=== PATIENT | male | born 1960 ===

== ENCOUNTER 2016-11-30 09:45 | Emergency (ER) | payer MEDICAID ==
[2016-11-30 09:49] VITALS: BP 134/90; PULSE 94; RESP 20; TEMP 98.1; O2SAT 98
--- NOTE | 2016-11-30 10:15 | C.PDOC ---
History Of Present Illness 56 y/o M p/w L knee pain x few days, worse today. Pain is sharp, worse with movement, associated with swelling. Denies fever, erythema, trauma. Has had this pain multiple times before, has had XR/MRI, went to rehab once. Comes to ER today because last time he came for same pain, got Toradol injection and it took the pain away completely. Time Seen by Provider: 11/30/16 10:00 Chief Complaint (Nursing): Lower Extremity Problem/Injury Past Medical History Vital Signs: Last Vital Signs Temp 98.1 F 11/30/16 09:48 Pulse 94 H 11/30/16 09:48 Resp 20 11/30/16 09:48 BP 134/90 11/30/16 09:48 Pulse Ox 98 11/30/16 09:48 - Medical History PMH: Hypercholesterolemia Family History: States: Unknown Family Hx - Social History Hx Tobacco Use: No Hx Alcohol Use: Yes (occasional) Hx Substance Use: No - Immunization History Hx Tetanus Toxoid Vaccination: No Hx Influenza Vaccination: No Hx Pneumococcal Vaccination: No Review Of Systems Except As Marked, All Systems Reviewed And Found Negative. Constitutional: Negative for: Fever Respiratory: Negative for: Shortness of Breath Physical Exam - Physical Exam Appears: No Acute Distress Skin: No Rash Head: Normacephalic Neck: Supple Cardiovascular: Rhythm Regular Respiratory: No Accessory Muscle Use Gastrointestinal/Abdominal: Soft, No Tenderness Extremity: Normal ROM, No Tenderness, Swelling (L knee effusion) Pulses: Left Dorsalis Pedis: Normal Neurological/Psych: Normal Motor, Normal Sensation Gait: Steady ED Course And Treatment O2 Sat by Pulse Oximetry: 98 Medical Decision Making Medical Decision Making: Encouraged rehab, f/u, return to ER for fever, inability to range, dyspnea. Disposition - Disposition Disposition: HOME/ ROUTINE Disposition Time: 10:15 Condition: STABLE Instructions: Swollen Knee Joint (ED) Forms: [employer] (Upper Sorbian) - Clinical Impression Clinical Impression: Knee pain
== END 2016-11-30 10:20 | disposition home or self-care (01) ==
LOC: C.ER 09:45
DX: M25.562 Pain in left knee (principal)

== ENCOUNTER 2017-07-24 09:33 | Emergency (ER) | payer MEDICAID ==
[2017-07-24 09:53] VITALS: BMI 28.3
[2017-07-24 09:55] VITALS: RESP 18
--- NOTE | 2017-07-24 11:53 | C.PDOC ---
History Of Present Illness 57 y/o male presents to ED with complaints of left knee pain for 2 days. Patient states symptoms happen every year and when he gets an injection symptoms resolve. Patient denies trauma, fever, rash, numbness or any other complaints at this time. Time Seen by Provider: 07/24/17 10:41 Chief Complaint (Nursing): Lower Extremity Problem/Injury History Per: Patient History/Exam Limitations: no limitations Onset/Duration Of Symptoms: Days Current Symptoms Are (Timing): Still Present Past Medical History Reviewed: Historical Data, Nursing Documentation, Vital Signs Vital Signs: Last Vital Signs Temp 98.5 F 07/24/17 12:19 Pulse 80 07/24/17 12:19 Resp 18 07/24/17 12:19 BP 142/86 07/24/17 12:19 Pulse Ox 99 07/24/17 12:19 - Medical History PMH: Hypercholesterolemia Surgical History: No Surg Hx Family History: States: No Known Family Hx - Social History Hx Tobacco Use: No Hx Alcohol Use: Yes (occasional) Hx Substance Use: No - Immunization History Hx Tetanus Toxoid Vaccination: No Hx Influenza Vaccination: No Hx Pneumococcal Vaccination: No Review Of Systems Except As Marked, All Systems Reviewed And Found Negative. Constitutional: Negative for: Fever Musculoskeletal: Positive for: Leg Pain Skin: Negative for: Rash, Bruising Physical Exam - Physical Exam Appears: Non-toxic, No Acute Distress Skin: Warm, Dry, No Rash Head: Atraumatic, Normacephalic Eye(s): bilateral: Normal Inspection Neck: Normal ROM, Supple Extremity: Tenderness (Mildly diffuse to left knee), Capillary Refill (<2 seconds), No Deformity, No Swelling Extremity: Bilateral: Normal ROM Pulses: Left Dorsalis Pedis: Normal Neurological/Psych: Oriented x3, Normal Motor, Normal Sensation ED Course And Treatment O2 Sat by Pulse Oximetry: 98 (RA) Pulse Ox Interpretation: Normal Progress Note: Toradol and Antonio Bandage administered. Left knee xray showed no fracture or dislocation. Patient discharged with f.u to ortho in 1-2 days Disposition Counseled Patient/Family Regarding: Studies Performed, Diagnosis, Need For Followup, Rx Given - Disposition Referrals: [facility] [Outside] [facility] [Outside] Matthias Greene MD [Staff Provider] - Disposition: HOME/ ROUTINE Disposition Time: 11:55 Condition: STABLE Additional Instructions: FOLLOW UP WITH ORTHOPEDICS WITHIN 1 WEEK USE PAIN MEDICATION NEEDED RETURN TO EMERGENCY ROOM IF SYMPTOMS WORSEN SEGUIMIENTO CON ORTOPEDIA DENTRO DE 1 SEMANA USE MEDICAMENTO PARA DOLOR SEGN SEA NECESARIO REGRESE AL SAUMYA DE EMERGENCIA SI LOS SNTOMAS EMPEORAN Prescriptions: Naproxen [Naprosyn] 1 tab PO BID PRN #25 tab PRN Reason: Pain Instructions: Knee Sprain (DC) Forms: [employer] ([place]ese) Print Language: CHILEAN - Clinical Impression Clinical Impression: Left knee sprain - Scribe Statement The provider has reviewed the documentation as recorded by the Scribe Tamika Kohler All medical record entries made by the Scribe were at my direction and personally dictated by me. I have reviewed the chart and agree that the record accurately reflects my personal performance of the history, physical exam, medical decision making, and the department course for this patient. I have also personally directed, reviewed, and agree with the discharge instructions and disposition.
[2017-07-24 12:22] VITALS: BP 142/86; PULSE 80; TEMP 98.5
[2017-07-24 13:30] VITALS: O2SAT 98
--- NOTE | 2017-07-24 14:09 | RAD ---
PROCEDURE: Left knee dated 07/24/2017 HISTORY: Pain. COMPARISON: None. FINDINGS: BONES: No evidence of acute displaced fracture nor dislocation. JOINTS: Joint spaces relatively preserved. There appears to be some mild degenerative changes patellofemoral compartment. JOINT EFFUSION: Suspect small suprapatellar joint effusion OTHER FINDINGS: None. IMPRESSION: No acute fractures. Suspect small suprapatellar joint effusion
== END 2017-07-24 12:32 | disposition home or self-care (01) ==
LOC: C.ER 09:33
DX: S83.92XA Sprain of unspecified site of left knee, initial encounter (principal); X58.XXXA Exposure to other specified factors, initial encounter
CPT/HCPCS: 73562; 96372; 99284; J1885